=== PATIENT | male | born 1985 | race African-American/Black ===

== ENCOUNTER 2022-05-10 09:57 | Day surgery (SDC) | payer OTHER ==
[~2022-05-10] VITALS: Ht 188 cm; Wt 127.3 kg
[2022-05-10] VITALS (9 sets, daily range): BP systolic 119–155; BP diastolic 82–92; PULSE 74–128; TEMP 97.7–98
--- NOTE | 2022-05-10 15:30 | NUR ---
PT BROUGHT TO ROOM BY PACU NURSE. VS STABLE. PT REPORTS PN A 3/10 IN THE ANKLE. SPLINT IS CDI. SCD TO LEFT ANKLE. FLUIDS RUNNING IN RIGHT HAND IV. 02 2L NC. NO OTHER NEEDS AT THIS TIME. CALL LIGHT WITHIN REACH.
--- NOTE | 2022-05-10 17:00 | NUR ---
PT DIDNT TOLERATE JELLO VERY WELL AND THREW UP EVERYWHERE. GOT ORDER FOR NAUSEA MEDS.
--- NOTE | 2022-05-10 21:38 | NUR ---
AT SHIFT CHANGE PATIENT WAS IN BED, ALERT AND ORIENTED. DENYING PAIN. VSS AND POSTOPS WERE FINISHING. NOTIFIED BY COUNSELING SERVICES DIRECTOR THAT HIS PULSE WAS ELEVATED IN 120'S, NOTIFIED GA JUAN, AND ORDER FOR TELE MONITORING. TELE APPLIED AND PATIENT IN AFIB IN 120s-130s. CALL TO GA JUAN TO NOTIFY AND NEW ORDER FOR EKG AND HOSPITALIST CONSULT. CALL TO ANDRÉS JUAN WITH NO ANSWER. AWAITING EKG RESULTS.
[2022-05-10 22:28] LABS: HEMATOCRIT 43.8 % (42.0-52.0); HEMOGLOBIN 15.3 g/dl (13.5-18.0); MEAN CELL VOLUME 91 fl (80.0-100.0); MEAN CORPUSCULAR HEMOGLOBIN 32 pg (27-31); MEAN CORPUSCULAR HGB CONC 35 g/dl (33.0-37.0); MEAN PLATELET VOLUME 9.6 fl (7.4-10.4); PLATELET COUNT 279 K/mm3 (130-400); RED BLOOD COUNT 4.84 M/mm3 (4.20-5.60); REDCELL DISTRIBUTION WIDTH-CV 11.8 % (11.5-14.5)
[2022-05-10 22:38] LABS: PARTIAL THROMBOPLASTIN TIME 31.3 SECONDS (26.0-37.0)
[2022-05-10 22:44] LABS: CALCIUM 9.4 mg/dL (8.4-10.2); CREATININE, serum 1.01 mg/dL (0.72-1.25); MAGNESIUM 1.7 mg/dL (1.6-2.6); POTASSIUM 3.7 mmol/L (3.5-4.5)
[2022-05-10 22:50] LABS: BAND 1 % (0-10); LYMPHOCYTE 9 % (20.0-51.0); NEUTROPHILS 89 % (42.0-75.2)
[2022-05-10 22:51] LABS: PLATELET ESTIMATE NORMAL (NORMAL)
[2022-05-10 23:05] LABS: TSH w REFLEX 0.424 uIU/mL (0.350-4.940)
[2022-05-11] VITALS (9 sets, daily range): BP systolic 109–131; BP diastolic 64–84; PULSE 66–122; TEMP 98.1–98.5
--- NOTE | 2022-05-11 02:22 | NUR ---
DISCUSSED WITH ANDRÉS JUAN, AND HOLDING FOR HEPARIN ORDER UNTIL LABS RETURN. LABS RETURNED, DISCUSSED WITH ANDRÉS JUAN, OKAY TO START HEPARIN BOLUS AND GTT AND MAGNESIUM AND POTASSIUM ORDERS. NEW 20 G IV STARTED TO R FA, HEPARIN GTT INFUSING AT 23 ML/HR. PATIENT DENYING SYMPTOMS. HR 106 ON TELE. BP STABLE, 120s/70s.
[2022-05-11 06:13] LABS: BASO % 0.2 % (0.0-2.0); EOS % 0.2 % (0.0-4.0); GRAN # 10.1 K/mm3 (1.4-6.5); GRAN % 81.9 % (42.2-75.2); HEMATOCRIT 42.3 % (42.0-52.0); HEMOGLOBIN 14.6 g/dl (13.5-18.0); LYMPH # 1.2 K/mm3 (1.2-3.4); LYMPH % 9.9 % (20.0-51.0); MEAN CELL VOLUME 91 fl (80.0-100.0); MEAN CORPUSCULAR HEMOGLOBIN 31 pg (27-31); MEAN CORPUSCULAR HGB CONC 35 g/dl (33.0-37.0); MEAN PLATELET VOLUME 9.7 fl (7.4-10.4); MONO # 0.9 K/mm3 (0.1-0.6); MONO % 7.5 % (1.7-9.3); PLATELET COUNT 287 K/mm3 (130-400); RED BLOOD COUNT 4.67 M/mm3 (4.20-5.60); REDCELL DISTRIBUTION WIDTH-CV 11.7 % (11.5-14.5)
[2022-05-11 06:49] LABS: CALCIUM 8.8 mg/dL (8.4-10.2); CREATININE, serum 0.94 mg/dL (0.72-1.25); POTASSIUM 3.8 mmol/L (3.5-4.5)
--- NOTE | 2022-05-11 07:01 | NUR ---
HEP XA 1.36. HEPARIN GTT STOPPED AT 0630. RECHECK ORDERED FOR 0830. BEDSIDE SHIFT REPORT TO DANICA CASTRO.
[2022-05-11 09:18] LABS: PARTIAL THROMBOPLASTIN TIME 47.9 SECONDS (26.0-37.0)
--- NOTE | 2022-05-11 10:20 | NUR ---
Initial visit; Patient thanked Brim Pouncing Machine Operator for looking in on him and stated he was just waiting for his Physician to come by and release him. Brim Pouncing Machine Operator wished him well and offered Blessings.
--- NOTE | 2022-05-11 13:17 | NUR ---
hoist worker met with patient to complete intake and discuss discharge plan. 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. He is independent with his ADL's and does not utilize any DME to assist with mobility. Patient has no home oxygen needs. He receives PCP care through [facility] and gets his prescriptions through [facility] as well. Patient does not have a DPOA-HC established. Education provided and patient verablizes his agreement with his being his decision maker. Patient reports that he has a follow up appointment on the with ortho and at that time will established with outpatient therapy. Discharge plan: Home
[2022-05-11] MEDS ORDERED: TOPROL XL 25MG25 MG PO (14:46)
[2022-05-11] MEDS ORDERED: TAMBOCOR50 MG PO (14:46)
[2022-05-11] MEDS ORDERED: ELIQUIS 5MG PO (14:46)
--- NOTE | 2022-05-11 15:31 | NUR ---
PATIENT INSTABLE CONDITION. ALERT ANDORIENTED X3. NO COMPLAINTS AT THIS TIME. POST OP VITALS STABLE.
--- NOTE | 2022-05-11 16:15 | NUR ---
PATIENT AND GIVEN ALL DISCHARGE INSTRUCTIONS AND EDUCATION. BOTH IVS DISCONTINUED, TELEMETRY DISCONTINUED. PO MEDS GIVEN PER ADOBE LAYER HELPER ORDERS. PATIENT LEFT IN STABLE CONDITION WITH HIS .
== END 2022-05-11 16:15 | disposition home or self-care (01) ==
LOC: SDCO 09:57 → INPTSU 12:00 → SURG 12:00 → SDCO 12:00 → SURG 15:30 → SDCO 05-11 16:15
PROVIDERS: Internal Medicine; Student in an Organized Health Care Education/Training Program
DX: M87.874 Other osteonecrosis, right foot (principal); E66.9 Obesity, unspecified
CPT/HCPCS: C1776; J0360; J0690; J1100; J1170; J1644; J1885; J2250; J2405; J2550; J2704; J2795; J3010; J3475; J7120

== ENCOUNTER → 2022-08-10 | Outpatient (CLI) | payer OTHER ==
[~2022-08-10] MED LIST: ELIQUIS 5MG PO; TAMBOCOR50 MG PO; TOPROL XL 25MG25 MG PO
== END ==
LOC: COL.RAD 13:39
DX: I77.810 Thoracic aortic ectasia (principal)
CPT/HCPCS: Q9967